=== PATIENT | male | born 1985 | race Caucasian/White ===

== ENCOUNTER 2021-06-26 09:45 | Emergency (ER) | payer MEDICARE ==
[2021-06-26 10:31] LABS: HEMOGLOBIN 15.1 gm/dl (14.0-17.5); RED BLOOD COUNT 4.99 M/UL (4.20-5.50)
[2021-06-26 10:55] LABS: BUN/CREATININE RATIO 14 (0-10)
== END 2021-06-26 12:30 | disposition home or self-care (01) ==
LOC: ER1 09:45
PROVIDERS: Emergency Medicine
DX: J06.9 Acute upper respiratory infection, unspecified (principal); Z20.822 Contact with and (suspected) exposure to COVID-19
CPT/HCPCS: 0240U; 71045; 80053; 82550; 82553; 83874; 84484; 85025; 85379; 93005; 99284